=== PATIENT | male | born 1965 | race Caucasian/White ===

== ENCOUNTER 2024-05-29 08:39 | Emergency (ER) | payer OTHER, SELFPAY ==
[2024-05-29] VITALS (10 sets, daily range): BP systolic 155; BP diastolic 89; PULSE 80–92; TEMP 37.4; O2SAT 92–98; BMI 27.9
--- NOTE | 2024-05-29 08:52 | ECG_ITS ---
[facility] Test Date: 2024-05-29 Pat Name: Mikal Renee Department: Room: - Gender: Male Supervisor Wound: : 1965 Requested By: [id number] Order Number: [id number] Reading MD: PERLA RIBEIRO M.D. Measurements Intervals [place] Rate: 81 P: 25 ND: 180 QRS: -70 QRSD: 92 T: 50 QT: 334 QTc: 372 Interpretive Statements 1100 Sinus rhythm 2440 Incomplete right bundle branch block 7200 Abnormal left axis deviation 8003 Consistent with pulmonary disease 9150 abnormal ECG Compared to ECG 10/04/2020 00:50:15 No significant changes Electronically Signed On 05-29-2024 9:40:23 EDT by PERLA RIBEIRO M.D.
--- NOTE | 2024-05-29 08:53 | ED.GENADUL1 ---
HPI HPI - General Adult General Chief complaint: Shortness of Breath/Dyspnea Stated complaint: SOB Time Seen by Provider: 05/29/24 08:48 Source: patient Mode of arrival: Wheelchair Limitations: no limitations History of Present Illness HPI narrative: 58-year-old male presents to the emergency ferment for a chief complaint of shortness of breath. He feels tightness in his chest and feels like he needs to cough something up but cannot. He has a history of COPD and has been using his inhaler and nebulizer but it has not helped much. No fever or hemoptysis. Related Data Home Medications ?Medication ?Instructions ?Recorded ?Confirmed albuterol sulfate 90 mcg/actuation 2 inh inhalation Q4H PRN shortness 05/29/24 05/29/24 aerosol inhaler of breath or wheezing amlodipine 5 mg tablet 5 mg PO DAILY 05/29/24 05/29/24 atorvastatin 40 mg tablet 40 mg PO DAILY 05/29/24 05/29/24 ibuprofen 600 mg tablet 600 mg PO Q8H 05/29/24 05/29/24 lisinopril 20 mg tablet 20 mg PO BID 05/29/24 05/29/24 metoprolol tartrate 50 mg tablet 25 mg PO BID 05/29/24 05/29/24 Previous Rx's ?Medication ?Instructions ?Recorded albuterol sulfate 2.5 mg/3 mL 2.5 mg (3 mL) inhalation Q6H PRN 05/29/24 (0.083 %) solution for nebulization shortness of breath or wheezing #90 mL oseltamivir 75 mg capsule (Tamiflu) 75 mg PO BID 5 days #10 caps 05/29/24 Allergies Allergy/AdvReac Type Severity Reaction Status Date / Time No Known Drug Allergies Allergy Verified 05/29/24 08:43 Opioid HPI Opioid Management Most Recent Opioid Data: No Data to Display Review of Systems ROS Narrative A ten point review of systems is negative except as noted above. PFSH PFSH Social History Little interest or pleasure in doing things: not at all Feeling down, depressed, or hopeless: not at all Exam Narrative Exam Narrative: Nurses note and vital signs reviewed and patient is not hypoxic. General: The patient appears well and in no apparent distress. Patient is resting comfortably on cart. Skin: Warm, dry, no pallor noted. There is no rash noted. Head: Normocephalic, atraumatic Eye: Normal conjunctiva, no drainage Ears, Nose, Mouth, and Throat: oral mucosa is moist. Nares patent. Cardiovascular: Regular Rate and Rhythm Respiratory: Patient appears mildly dyspneic. Breath sounds are diminished bilateral Back: non-tender GI: Soft and nontender Musculoskeletal: The patient has no evidence of calf tenderness, no pitting edema, symmetrical pulses noted bilaterally Neurological: A&O, normal speech Psychiatric: Cooperative Constitutional Vital Signs, click to edit/add: Last Vital Signs Temp 99.3 F 05/29/24 08:43 Pulse 84 05/29/24 09:40 Resp 14 05/29/24 09:40 BP 155/89 H 05/29/24 08:44 Pulse Ox 93 L 05/29/24 09:40 O2 Del Method Room Air 05/29/24 09:05 Course Vital Signs Vital signs: Vital Signs Temperature 99.3 F 05/29/24 08:43 Pulse Rate 84 05/29/24 08:43 Respiratory Rate 22 H 05/29/24 08:43 Blood Pressure 155/89 H 05/29/24 08:43 Pulse Oximetry 93 L 05/29/24 08:43 Oxygen Delivery Method Room Air 05/29/24 08:43 Temperature 99.3 F 05/29/24 08:43 Pulse Rate 84 05/29/24 09:40 Respiratory Rate 14 05/29/24 09:40 Blood Pressure 155/89 H 05/29/24 08:44 Pulse Oximetry 93 L 05/29/24 09:40 Oxygen Delivery Method Room Air 05/29/24 09:05 Medical Decision Making MDM Narrative Medical decision making narrative: He was found to have influenza, COVID is negative. Chest x-ray on my interpretation showed no infiltrates. He will be placed on Tamiflu and was given a prescription for albuterol as well. Treatment diagnosis and follow-up were discussed with the patient. Differential Diagnosis Differential Diagnosis: Influenza, COVID, pneumonia, COPD exacerbation Lab Data Lab results reviewed: Yes I reviewed the patient's lab results Labs: Lab Results 05/29/24 05/29/24 Range/Units 08:45 08:51 WBC 7.3 (4.0-11.0) 10^3/uL RBC 4.65 L (4.70-6.10) 10^6/uL Hgb 14.4 (14.0-18.0) g/dL Hct 41.0 L (42.0-54.0) % MCV 88.2 (80.0-94.0) fL MCH 31.0 (25.9-34.0) pg MCHC 35.1 (29.9-35.2) g/dL RDW 13.6 (11.0-15.0) % Plt Count 201 (150-450) 10^3/uL MPV 11.5 (9.5-13.5) fL Seg Neuts % (Manual) 76.0 H (43.0-75.0) Band Neutrophils % 8.0 H (0-5) % Lymphocytes % (Manual) 5.0 L (20.5-60.0) % Monocytes % (Manual) 10.0 (1.7-12.0) % Eosinophils % (Manual) 0.0 L (0.9-7.0) % Basophils % (Manual) 1.0 (0.2-2.0) % Neutrophils # (Manual) 5.54 (1.4-6.5) 10^3/uL Band Neutrophils # 0.6 H (0.0-0.3) 10^3/uL Lymphocytes # (Manual) 0.36 L (1.20-3.80) 10^3/uL Monocytes # (Manual) 0.73 (0.30-0.80) 10^3/uL Eosinophils # (Manual) 0.00 (0.00-0.70) 10^3/uL Basophils # (Manual) 0.07 (0.00-0.10) 10^3/uL Anisocytosis 1+ Troponin I High Sens 11.9 (4.0-76.1) pg/mL Influenza Type A Ag Positive A Influenza Type B Ag Negative SARS-CoV-2 Ag (CV2AG) Negative (NEGATIVE) Imaging Data Chest x-ray: My impression: No infiltrate ECG Data Attestation: I personally reviewed and interpreted this ECG as follows: (EKG on my interpretation shows normal sinus rhythm with rate of 81) Discharge Plan Discharge Chief Complaint: Shortness of Breath/Dyspnea Clinical Impression: Influenza Patient Disposition: Home, Self-Care Time of Disposition Decision: 10:08 Condition: Good Mode of Transportation: Private Vehicle Prescriptions / Home Meds: New oseltamivir [Tamiflu] 75 mg capsule 75 mg PO BID 5 Days Qty: 10 0RF albuterol sulfate 2.5 mg /3 mL (0.083 %) solution for nebulization 2.5 mg inhalation Q6H PRN (Reason: shortness of breath or wheezing) Qty: 90 0RF No Action albuterol sulfate 90 mcg/actuation HFA aerosol inhaler 2 inh INHALATION Q4H PRN (Reason: shortness of breath or wheezing) amlodipine 5 mg tablet 5 mg PO DAILY atorvastatin 40 mg tablet 40 mg PO DAILY ibuprofen 600 mg tablet 600 mg PO Q8H lisinopril 20 mg tablet 20 mg PO BID metoprolol tartrate 50 mg tablet 25 mg PO BID Print Language: [place] Citizen Instructions: Influenza (ED) Referrals: MEREDITH LING [Primary Care Provider] - 1 week
[2024-05-29 09:00] LABS: Hemoglobin 14.4 g/dL (14.0-18.0); Mean Corpuscular HGB Conc 35.1 g/dL (29.9-35.2); Mean Corpuscular Volume 88.2 fL (80.0-94.0); Mean Platelet Volume 11.5 fL (9.5-13.5); Platelet Count 201 10^3/uL (150-450); Red Blood Count 4.65 10^6/uL (4.70-6.10); Red Cell Distribution Width 13.6 % (11.0-15.0); White Blood Count 7.3 10^3/uL (4.0-11.0)
[2024-05-29] MEDS: ALBUTEROL SULFATE 2.5 MG/3 ML VIAL NEB IH (09:04)
[2024-05-29] MEDS: METHYLPREDNISOLONE SOD SUCC PF 125 MG/2 ML VIAL IVP (09:09)
[2024-05-29 09:14] LABS: Influenza Virus A Antigen Positive; Influenza Virus B Antigen Negative; Internal Control Within Normal Limits; SARS-CoV-2 Ag NEGATIVE (NEGATIVE)
[2024-05-29 09:18] LABS: Troponin I High Sensitivity 11.9 pg/mL (4.0-76.1)
[2024-05-29 09:33] LABS: Anisocytosis 1+; Band Neutrophils Absolute 0.6 10^3/uL (0.0-0.3); Basophils Abs Manual 0.07 10^3/uL (0.00-0.10); Lymphocytes Absolute Manual 0.36 10^3/uL (1.20-3.80); Monocytes Absolute Manual 0.73 10^3/uL (0.30-0.80); Segmented Neut Absolute Manual 5.54 10^3/uL (1.4-6.5)
== END 2024-05-29 10:26 | disposition home or self-care (01) ==
LOC: ER 10:16
PROVIDERS: Emergency Provider Emergency Medicine; PCP Internal Medicine
DX: J10.1 Influenza due to other identified influenza virus with other respiratory manifestations (principal); R06.02 Shortness of breath
CPT/HCPCS: 36415; 71045; 84484; 85007; 85027; 87804; 87811; 93005; 94640; 99285; J2919